=== PATIENT | female | born 1960 | race Asian ===

== ENCOUNTER 2019-05-26 04:57 | Emergency (ER) | payer OTHER ==
[~2019-05-26] VITALS: Ht 157.5 cm; Wt 76.7 kg
[2019-05-26 05:24] VITALS: Ht 157.5 cm; Wt 76.7 kg
[2019-05-26 07:00] LABS: PLATELET COUNT 250 x10^3mcL (130-400)
[2019-05-26 07:04] LABS: BILIRUBIN TOTAL 0.48 mg/dL (0.20-1.00); CALCIUM 8.9 mg/dL (8.5-10.1); CARBON DIOXIDE 22.2 mmol/L (21-32); CREATININE SERUM 2.1 mg/dL (0.6-1.0); MAGNESIUM 2.8 mg/dL (1.8-2.4); POTASSIUM SERUM 5.2 mmol/L (3.5-5.1); TOTAL PROTEIN, SERUM 7.3 g/dL (6.4-8.2)
[2019-05-26 07:06] LABS: BASOPHIL % 0 % (0-2); RED CELL DISTRIBUTION WIDTH 16.1 % (11.5-14.5)
[2019-05-26 07:14] LABS: UA SPECIFIC GRAVITY 1.015 (1.005-1.035); microscopic required? YES; urine erythrocyte 3+ (NEGATIVE)
[2019-05-26 07:30] LABS: ALBUMIN 3.2 g/dL (3.4-5.0)
[2019-05-26] MEDS ORDERED: HUMALOG100 UNIT/1 SQ (07:55)
[2019-05-26] MEDS ORDERED: NOR10 PO (07:55)
[2019-05-26] MEDS ORDERED: PREDNISONE2.5 MG PO (07:56)
[2019-05-26] MEDS ORDERED: LIPITOR40 MG PO (07:56)
[2019-05-26] MEDS ORDERED: GOOD SENSE ASPI81 M3 PO (07:57)
[2019-05-26] MEDS ORDERED: PRO PO (07:57)
[2019-05-26] MEDS ORDERED: ALLOPURINOL300 M1 PO (07:57)
[2019-05-26] MEDS ORDERED: CEL250 PO (07:58)
[2019-05-26] MEDS ORDERED: METOPROLOL SUC100 M2 PO (07:58)
[2019-05-26] MEDS ORDERED: MASON NATURAL1000 IU PO (07:58)
[2019-05-26] MEDS ORDERED: PROTONIX40 MG PO (07:59)
[2019-05-26] MEDS ORDERED: ZESTRIL40 MG PO (07:59)
--- NOTE | 2019-05-26 08:30 | NUR ---
ABG DRAWN ON BIPAP, PER DR VILA, PT SUBSEQUENTLY PLACED ON NRB MASK AT 15LPM AND WILL BE TITRATED DOWN APPROPRIATE. SPO2 ON 15LPM NRB 97%, RR 24, HR 91. WILL CONTINUE TO MONITOR.
--- NOTE | 2019-05-26 11:56 | NUR ---
PATIENT PLACED BACK ON BIPAP DUE TO LOW SPO2 (77% ON 15LPM NRB MASK). PT ON 27/08 WITH FIO2 OF 100%. SPO2 INCREASED TO 93%, HR 89, RR 25. WILL CONTINUE TO MONITOR.
[2019-05-26 13:19] VITALS: BP 110/62
== END 2019-05-26 13:35 | disposition short-term general hospital (02) ==
LOC: ED 04:57
PROVIDERS: Emergency Medicine
DX: J96.00 Acute respiratory failure, unspecified whether with hypoxia or hypercapnia (principal); J18.9 Pneumonia, unspecified organism; I21.4 Non-ST elevation (NSTEMI) myocardial infarction; R65.10 Systemic inflammatory response syndrome (SIRS) of non-infectious origin without acute organ dysfunction; N17.9 Acute kidney failure, unspecified
CPT/HCPCS: 36600; 83880; 87804; J1644; J2543; Q0092